=== PATIENT | female | born 1990 | race Caucasian/White ===

== ENCOUNTER 2021-06-20 16:39 | Emergency (ER) | payer MEDICAID ==
[~2021-06-20] VITALS: Ht 165.1 cm; Wt 81.8 kg
[2021-06-20 16:47] VITALS: BP 107/58
[2021-06-20 17:31] LABS: COVID AG,FIA SOURCE NASOPHARYNGEAL
== END 2021-06-20 18:50 | disposition home or self-care (01) ==
LOC: EMS 16:50
DX: U07.1 COVID-19 (principal)
CPT/HCPCS: 99283